=== PATIENT | male | born 1995 | race Caucasian/White ===

== ENCOUNTER 2018-12-20 17:58 | Emergency (ER) | payer OTHER, MEDICAID ==
[~2018-12-20] VITALS: Ht 175.3 cm; Wt 106.1 kg
--- NOTE | 2018-12-20 18:55 | REP ---
Right shoulder three views : There is no fracture or dislocation. Mineralization and joint spaces are normal. There are no calcifications or foreign bodies. Impression: Negative right shoulder . Electronically Signed by Miah Herring MD 12/20/2018 06:46 P
[2018-12-20 19:56] VITALS: BP 138/88
== END 2018-12-20 20:14 | disposition home or self-care (01) ==
LOC: M ED 17:58
DX: S46.911A Strain of unspecified muscle, fascia and tendon at shoulder and upper arm level, right arm, initial encounter (principal); X58.XXXA Exposure to other specified factors, initial encounter; Y92.89 Other specified places as the place of occurrence of the external cause; Y93.89 Activity, other specified; Y99.0 Civilian activity done for income or pay; F90.9 Attention-deficit hyperactivity disorder, unspecified type; G89.29 Other chronic pain; M25.511 Pain in right shoulder; Z88.0 Allergy status to penicillin

== ENCOUNTER 2022-06-10 04:18 | Emergency (ER) | payer OTHER, MEDICARE ==
[~2022-06-10] VITALS: Ht 175.3 cm; Wt 114.1 kg
[2022-06-10 05:02] VITALS: BP 146/107
[2022-06-10] MEDS ORDERED: ACETAMINOPHEN 325 MG TAB PO ONE (05:20)
== END 2022-06-10 05:57 | disposition home or self-care (01) ==
LOC: M ED 04:18
DX: S09.90XA Unspecified injury of head, initial encounter (principal); Y04.2XXA Assault by strike against or bumped into by another person, initial encounter; Z88.1 Allergy status to other antibiotic agents; Y99.0 Civilian activity done for income or pay

== ENCOUNTER 2024-11-27 23:44 | Emergency (ER) | payer MEDICARE, OTHER, SELFPAY ==
[~2024-11-27] VITALS: Ht 175.3 cm; Wt 111.0 kg
[2024-11-28 08:30] VITALS: BP 142/98; TEMP 98.3; O2SAT 97
== END 2024-11-28 08:45 | disposition home or self-care (01) ==
LOC: M ED 23:44
DX: R11.2 Nausea with vomiting, unspecified (principal); R03.0 Elevated blood-pressure reading, without diagnosis of hypertension; Z88.0 Allergy status to penicillin

== ENCOUNTER 2025-01-15 20:59 | Emergency (ER) | payer MEDICARE ==
[~2025-01-15] VITALS: Ht 167.6 cm; Wt 116.1 kg
[2025-01-15 21:01] VITALS: TEMP 97.5; O2SAT 99
[2025-01-15 21:10] VITALS: BP 166/96
[2025-01-15] MEDS ORDERED: CLEO300C2 PO (22:45)
[2025-01-15] MEDS ORDERED: KETO-204 PO (22:45)
[2025-01-15] MEDS: CLINDAMYCIN 150 MG CAPSULE PO ONE (22:58)
[2025-01-15] MEDS: KETOROLAC 60 MG/2 ML VIAL IM ONE (22:59)
== END 2025-01-15 23:10 | disposition home or self-care (01) ==
LOC: M ED 20:59
DX: K08.89 Other specified disorders of teeth and supporting structures (principal); Z88.1 Allergy status to other antibiotic agents; Z79.2 Long term (current) use of antibiotics; Z79.899 Other long term (current) drug therapy
CPT/HCPCS: 96372; 99283; J1885